=== PATIENT | female | born 1975 | race Caucasian/White ===

== ENCOUNTER → 2020-10-04 | Outpatient (CLI) | payer BC | LOC: MC.RAD 15:55 | DX: Z12.31 Encounter for screening mammogram for malignant neoplasm of breast (principal) ==

== ENCOUNTER 2022-03-23 01:08 | Observation (INO) | payer BC ==
[~2022-03-23] VITALS: Ht 165.1 cm; Wt 118.0 kg
[~2022-03-23 01:08] MED LIST: FLONASE NASAL S16 GM NAS; GLUCOPHAGE500 MG/TAB PO; NYAMYC100000 U/G TP; PROVENTIL0.09 MG/A1 IH
[2022-03-23 01:23] LABS: BASO # 0.1 K/mm3 (0.0-0.2); BASO % 0.6 % (0.0-2.0); EOS # 0.3 K/mm3 (0.0-0.7); EOS % 2.2 % (0.0-4.0); GRAN # 12.5 K/mm3 (1.4-6.5); GRAN % 81.1 % (42.2-75.2); HEMATOCRIT 41.6 % (37.0-47.0); HEMOGLOBIN 14.2 g/dl (12.5-16.0); LYMPH # 1.9 K/mm3 (1.2-3.4); LYMPH % 12.2 % (20.0-51.0); MEAN CELL VOLUME 83 fl (80.0-100.0); MEAN CORPUSCULAR HEMOGLOBIN 28 pg (27-31); MEAN CORPUSCULAR HGB CONC 34 g/dl (33.0-37.0); MONO # 0.6 K/mm3 (0.1-0.6); MONO % 3.6 % (1.7-9.3); PLATELET COUNT 265 K/mm3 (130-400); RED BLOOD COUNT 5.01 M/mm3 (4.10-5.30); REDCELL DISTRIBUTION WIDTH-CV 15.7 % (11.5-14.5)
[2022-03-23 01:42] LABS: C-REACTIVE PROTEIN 3.65 mg/dL (0.00-0.50)
[2022-03-23 01:46] LABS: BILIRUBIN,TOTAL 0.7 mg/dL (0.2-1.2); CALCIUM 9.9 mg/dL (8.4-10.2); CREATININE, serum 0.74 mg/dL (0.57-1.11); POTASSIUM 4.4 mmol/L (3.5-4.5); TOTAL PROTEIN 7.3 gm/dL (6.2-8.1)
[2022-03-23] MEDS ORDERED: ZYRTEC5 MG PO (03:00)
--- NOTE | 2022-03-23 03:45 | NUR ---
pt admitted to room 343 per wc from ED accompanied by RN and family member. pt able to ambulate to bed, ED RN reports that pt had to be put on 1L O2 per NC while asleep, NC and O2 provided for pt. IVF infusing per PIV in LAC. c/o mid upper abdominal pain, morphine ordered for pain, Dr Holcomb notified of pt arrival, SSI orders rec'd.
[2022-03-23 04:09] VITALS: BP 131/65; PULSE 56; TEMP 98.3
--- NOTE | 2022-03-23 07:16 | NUR ---
Received shift report from the operations supervisor 2nd shift nurse, RN
[2022-03-23 07:22] VITALS: BP 153/75; PULSE 55; TEMP 97.4
--- NOTE | 2022-03-23 08:51 | NUR ---
JUNE met with the patient to discuss discharge plan. The patient lives in [place] with her , Nagi (ph#[phone]). She states that her is a gas meter mechanic and is home only two weekends a month. She reports independence with ADLs and has canes available, if needed. The patient's PCP is Dr. Evelyn Dunbar and she receives her medications from [facility]. The patient does not have a DPOA-HC, but she was interested in obtaining a form. JUNE provided. The patient plans to return home upon discharge. No additional needs at this time. *Discharge plan: home*
--- NOTE | 2022-03-23 10:10 | NUR ---
Patient laying in bed alert and oriented. Patient reports of pain at epigastric region. Patient rated pain level 8/10. Morphine administered per orders.
--- NOTE | 2022-03-23 10:51 | NUR ---
Initial visit; Patient thanked Door Serviceman for looking in on her and keeping her in Door Serviceman's prayers
[2022-03-23 11:34] VITALS: BP 129/83; PULSE 55; TEMP 97.5
[2022-03-23 12:34] LABS: MEAN CELL VOLUME 85 fl (80.0-100.0); MEAN CORPUSCULAR HEMOGLOBIN 28 pg (27-31); MEAN CORPUSCULAR HGB CONC 33 g/dl (33.0-37.0); PLATELET COUNT 245 K/mm3 (130-400); RED BLOOD COUNT 4.58 M/mm3 (4.10-5.30); REDCELL DISTRIBUTION WIDTH-CV 15.8 % (11.5-14.5)
[2022-03-23 16:15] VITALS: BP 115/66; PULSE 59; TEMP 97.7
--- NOTE | 2022-03-23 18:57 | NUR ---
Patient awake watching tv. Patient denies of episode of n/v.
[2022-03-23 19:18] VITALS: BP 111/73; PULSE 62; TEMP 98.1
--- NOTE | 2022-03-23 21:00 | NUR ---
Patient A/O x4, VSS, denies pain on her abdomen, complained of headache but denies the need for medicine at this time, called Dr. Sanders and informed him that patient had a bowel movement ang I got an order to advance her diet to regular, sandwich given and tolerated it, will continue to monitor, call light and personal items within reach.
[2022-03-23 23:27] VITALS: BP 102/61; PULSE 81; TEMP 98.4
[2022-03-24 03:37] VITALS: BP 110/68; PULSE 74; TEMP 98.2
--- NOTE | 2022-03-24 07:08 | NUR ---
Received shift report from the hourly shift manager nurse, GRIS Li
[2022-03-24 07:47] VITALS: BP 160/77; PULSE 85; TEMP 98.7
--- NOTE | 2022-03-24 09:54 | NUR ---
Patient sitting up in bed. Patient states she had a bowel movement last night and passing out gas. Patient reports of mild discomfort the epigastric area. Patient has no order consent.
--- NOTE | 2022-03-24 10:38 | NUR ---
Discharge instruction given to patient. Patient has no other questions. INT discontinued. Patient escorted to the ER entrance. Family member escorted patient home.
--- NOTE | 2022-03-24 12:58 | NUR ---
Cap Sewer rounds: Patient was waiting for her daughter to arrive because she was going to be discharged today. Patient was looking forward to seeing her dogs. Cap Sewer prayed for Patient.
== END 2022-03-24 10:32 | disposition home or self-care (01) ==
LOC: COL.ER 01:08 → SURG 02:56
PROVIDERS: Emergency Medicine; ADMIT Surgery
DX: K56.609 Unspecified intestinal obstruction, unspecified as to partial versus complete obstruction (principal); K43.9 Ventral hernia without obstruction or gangrene; E66.01 Morbid (severe) obesity due to excess calories; Z68.41 Body mass index [BMI] 40.0-44.9, adult; E11.9 Type 2 diabetes mellitus without complications; Z79.84 Long term (current) use of oral hypoglycemic drugs; Z93.3 Colostomy status; Z90.49 Acquired absence of other specified parts of digestive tract
CPT/HCPCS: G0378; J1815; J2270; J2405; J2550; J7030; J7120; Q9967

== ENCOUNTER 2023-04-23 10:34 | Observation (INO) | payer SELFPAY ==
[~2023-04-23] VITALS: Ht 165.1 cm; Wt 118.0 kg
[~2023-04-23 10:34] MED LIST changes: +ALLEGRA 60MG TA60 MG PO; +BENADRYL25 M2 PO; +DOXYCYCLINE HY100 MG PO; +NYSTATIN100000 U/1 TOP; +OZEMPIC0.25 MG/0. SQ; +RIOMET500 MG/5 M PO; +VICTOZA6 MG/ML SQ; +ZYRTEC5 MG PO
[2023-04-23 12:39] LABS: ALBUMIN 3.8 gm/dL (3.5-5.0); BILIRUBIN,TOTAL 0.6 mg/dL (0.2-1.2); CALCIUM 9.7 mg/dL (8.4-10.2); CREATININE, serum 0.77 mg/dL (0.57-1.11); POTASSIUM 4.3 mmol/L (3.5-4.5)
[2023-04-23 12:42] LABS: BASO # 0.1 K/mm3 (0.0-0.2); BASO % 0.3 % (0.0-2.0); EOS % 0.3 % (0.0-4.0); GRAN # 13.1 K/mm3 (1.4-6.5); GRAN % 89.7 % (42.2-75.2); HEMATOCRIT 44.4 % (37.0-47.0); HEMOGLOBIN 14.9 g/dl (12.5-16.0); LYMPH # 1.1 K/mm3 (1.2-3.4); LYMPH % 7.3 % (20.0-51.0); MEAN CELL VOLUME 85 fl (80.0-100.0); MEAN CORPUSCULAR HEMOGLOBIN 28 pg (27-31); MEAN CORPUSCULAR HGB CONC 34 g/dl (33.0-37.0); MEAN PLATELET VOLUME 11.2 fl (7.4-10.4); MONO # 0.3 K/mm3 (0.1-0.6); PLATELET COUNT 274 K/mm3 (130-400); RED BLOOD COUNT 5.24 M/mm3 (4.10-5.30); REDCELL DISTRIBUTION WIDTH-CV 15.1 % (11.5-14.5)
[2023-04-23 15:26] LABS: COLLECTION METHOD CLEAN CATCH
[2023-04-23] MEDS ORDERED: OZEMPIC2 MG/0.75 SQ (15:37)
[2023-04-23] MEDS ORDERED: COLACE 100100 MG/CAP PO (15:39)
[2023-04-23] MEDS ORDERED: MICATIN2% TP (15:40)
[2023-04-23] MEDS ORDERED: ONE-A-DAY WOM200 MCG PO (15:42)
[2023-04-23 15:57] LABS: PH 5.5 (5.0-8.5); SQUAMOUS EPITHELIAL 0-2 /hpf (0-10); URINE APPEARANCE Clear (CLEAR/HAZY); URINE BLOOD Negative (NEGATIVE); URINE COLOR Yellow (YELLOW); URINE GLUCOSE Negative (NEGATIVE); URINE KETONE Negative (NEGATIVE); URINE NITRATE Negative (NEGATIVE); URINE PROTEIN(semi-quant) Negative (NEGATIVE); URINE RBC None Seen /hpf (0-2); URINE UROBILINOGEN 0.2 E.U/dL (0.2-1.0)
[2023-04-23 15:58] LABS: MUCOUS Present (NOT PRESENT); URINE BACTERIA Occasional /hpf (NONE SEEN)
[2023-04-23 17:00] VITALS: BP_SYST 151
[2023-04-23 17:11] VITALS: BP 151/69; PULSE 85; TEMP 99.5
--- NOTE | 2023-04-23 17:14 | NUR ---
PT REFUSED EKG. RN BEDSIDE. HALEIGH COLLIER NOTIFIED. IS FINE WITH PT DECISION.
--- NOTE | 2023-04-23 17:19 | NUR ---
PT REFUSED EKG AND TELEMETRY MONITORING.
--- NOTE | 2023-04-23 18:08 | NUR ---
PT ARRIVED TO FLOOR FROM ED AT 1645. PT IS HAVING 7/10 PAIN IN THE ABDOMEN . VITALS ARE STABLE. STARTED PT ON IV FLUIDS. NO NAUSEA AT THIS TIME. PT IS INDEPENDENT IN ROOM. SCDS ARE CALL LIGHT WITHIN REACH.
--- NOTE | 2023-04-23 18:40 | NUR ---
resting in bed, bedside shift report received from GRIS Jenkins, requestion pain meds and Alice will provide
--- NOTE | 2023-04-23 19:00 | NUR ---
c/o abdominal pain and requesting pain medication, medicated with morphine 2mg slow IV
[2023-04-23 20:00] VITALS: BP 106/60; PULSE 67; TEMP 98.6
--- NOTE | 2023-04-23 21:00 | NUR ---
was resting with eyes closed when entered room, then when awakened she began crying and moving about in bed c/o abdominal pain again, mnedicated with morphine 2mg slow IV, full assessment completed, see interventions for further info,
[2023-04-23 21:49] VITALS: BP_SYST 106
--- NOTE | 2023-04-23 22:29 | NUR ---
appears to be sleeping, in bed with eyes closed, resp quiet and easy
--- NOTE | 2023-04-23 23:28 | NUR ---
awake and requesting pain meds for pain 11/03, medicated with morphine 2mg slow IV
[2023-04-24] VITALS (8 sets, daily range): BP systolic 117–159; BP diastolic 60–98; PULSE 58–83; TEMP 97.7–98.2
--- NOTE | 2023-04-24 00:14 | NUR ---
awake and assisted up to bathroom, no moaning or crying in pain and appears to be comfortable
--- NOTE | 2023-04-24 01:46 | NUR ---
cardiopulmonary placed her on O2 at 2L/NC during rounds for an O2 sat of 84%
--- NOTE | 2023-04-24 02:02 | NUR ---
appears to be sleeping, in bed with lights off, eyes closed, resp quiet and easy
--- NOTE | 2023-04-24 05:29 | NUR ---
c/o pain and at first thought it was better and asked for MOtrin, MOtrin not ordered and then she called again and said pain was increaseing and requested morphine, morphine 2mg slow IV given
[2023-04-24 05:56] LABS: BASO # 0.1 K/mm3 (0.0-0.2); BASO % 0.5 % (0.0-2.0); EOS # 0.3 K/mm3 (0.0-0.7); EOS % 2.7 % (0.0-4.0); GRAN # 7.4 K/mm3 (1.4-6.5); GRAN % 76.4 % (42.2-75.2); HEMATOCRIT 38.5 % (37.0-47.0); LYMPH # 1.3 K/mm3 (1.2-3.4); LYMPH % 13.8 % (20.0-51.0); MEAN CELL VOLUME 85 fl (80.0-100.0); MEAN CORPUSCULAR HEMOGLOBIN 29 pg (27-31); MEAN CORPUSCULAR HGB CONC 34 g/dl (33.0-37.0); MEAN PLATELET VOLUME 10.9 fl (7.4-10.4); MONO # 0.6 K/mm3 (0.1-0.6); MONO % 6.1 % (1.7-9.3); PLATELET COUNT 224 K/mm3 (130-400); RED BLOOD COUNT 4.52 M/mm3 (4.10-5.30); REDCELL DISTRIBUTION WIDTH-CV 15.5 % (11.5-14.5)
[2023-04-24 06:18] LABS: CALCIUM 9.2 mg/dL (8.4-10.2); CREATININE, serum 0.69 mg/dL (0.57-1.11); POTASSIUM 4.3 mmol/L (3.5-4.5)
--- NOTE | 2023-04-24 06:50 | NUR ---
bedside shift report given to GRIS Tenorio
--- NOTE | 2023-04-24 07:55 | NUR ---
Pt. laying in bed. Pt. is A&OX3, assessment complete. IV to rt. ac patent, IV fluids infusing per orders. Pt. report pain to abd. at a 5 on pain scale, gave pain meds. Pt. also reports headache. NANDO Bustos notified, new order received. Pt. denies further needs, call light within reach.
--- NOTE | 2023-04-24 09:02 | NUR ---
gathering worker met with pt to discuss discharge planning. Pt lives in [facility] with her , Nagi [phone]. She sees Dr. Hernandez and obtains medications from [facility] with some difficulty. She was aware of [facility] and says her is working on getting lower cost prescriptions. JUNE advised to inquire about coupons and samples. Pt does not use any DME and is independent with ADLS. She did not have a DPOA-HC, but completed one with JUNE and GRIS Tenorio as witness. Pt was provided original and copies. Copy in chart. Pt wanted a "financial paper" in the event her insurance changeover did not take affect in time to cover this visit. JUNE left a voicemail with Cashier Greeter Hedy to see if she can assist. Discharge Plan: Home
--- NOTE | 2023-04-24 10:12 | NUR ---
Initial visit; Patient thanked Airplane Navigator for looking in on her and offering God's blessings. Patient in considerable pain requested prayer. Airplane Navigator prayed for healing and God's continual blessings. Airplane Navigator let Kim know a Airplane Navigator will see her tomorrow or sooner if she needs to visit and/or pray with someone.
--- NOTE | 2023-04-24 14:51 | NUR ---
Pt. ready for discharge. INT discontiued from rt. ac. Reviewed and gave discharge paperwork to the pt. Pt. voices understanding. Pt. escorted out.
== END 2023-04-24 14:52 | disposition home or self-care (01) ==
LOC: COL.ER 10:34 → SURG 15:29
PROVIDERS: Physician Assistant; ADMIT Internal Medicine
DX: K46.9 Unspecified abdominal hernia without obstruction or gangrene (principal); K76.0 Fatty (change of) liver, not elsewhere classified; D72.829 Elevated white blood cell count, unspecified; R07.9 Chest pain, unspecified; E11.9 Type 2 diabetes mellitus without complications; Z79.84 Long term (current) use of oral hypoglycemic drugs
CPT/HCPCS: G0378; J1815; J2270; J2405; J7030; J7120; Q9967

== ENCOUNTER 2023-05-06 21:07 | Inpatient (IN) | payer BC ==
[~2023-05-06] VITALS: Ht 165.1 cm; Wt 121.0 kg
[~2023-05-06 21:07] MED LIST changes: +COLACE 100100 MG/CAP PO; +MICATIN2% TP; +ONE-A-DAY WOM200 MCG PO; +OZEMPIC2 MG/0.75 SQ
[2023-05-06 22:20] LABS: BASO # 0.1 K/mm3 (0.0-0.2); BASO % 0.5 % (0.0-2.0); EOS # 0.3 K/mm3 (0.0-0.7); EOS % 2.1 % (0.0-4.0); GRAN # 10.5 K/mm3 (1.4-6.5); GRAN % 79.4 % (42.2-75.2); LYMPH # 1.8 K/mm3 (1.2-3.4); LYMPH % 13.8 % (20.0-51.0); MEAN CELL VOLUME 85 fl (80.0-100.0); MEAN CORPUSCULAR HEMOGLOBIN 28 pg (27-31); MEAN CORPUSCULAR HGB CONC 33 g/dl (33.0-37.0); MEAN PLATELET VOLUME 10.9 fl (7.4-10.4); MONO # 0.5 K/mm3 (0.1-0.6); MONO % 3.7 % (1.7-9.3); PLATELET COUNT 219 K/mm3 (130-400); RED BLOOD COUNT 4.95 M/mm3 (4.10-5.30); REDCELL DISTRIBUTION WIDTH-CV 15.2 % (11.5-14.5)
[2023-05-06 22:37] LABS: ALBUMIN 3.9 gm/dL (3.5-5.0); BILIRUBIN,TOTAL 0.6 mg/dL (0.2-1.2); C-REACTIVE PROTEIN 3.73 mg/dL (0.00-0.50); CREATININE, serum 0.79 mg/dL (0.57-1.11); TOTAL PROTEIN 7.9 gm/dL (6.2-8.1)
[2023-05-07] VITALS (10 sets, daily range): BP systolic 121–159; BP diastolic 77–97; PULSE 59–76; TEMP 97.4–98.5
[2023-05-07] MEDS ORDERED: ZYRTEC 10MG10 MG PO (00:11)
[2023-05-07 00:17] LABS: COLLECTION METHOD CLEAN CATCH
[2023-05-07] MEDS ORDERED: [UNRECOGNIZED DRUG - OTHER] PO (00:19)
[2023-05-07 00:36] LABS: PH 5.5 (5.0-8.5); URINE APPEARANCE Clear (CLEAR/HAZY); URINE BACTERIA Occasional /hpf (NONE SEEN); URINE BLOOD Negative (NEGATIVE); URINE COLOR Yellow (YELLOW); URINE GLUCOSE Negative (NEGATIVE); URINE KETONE Negative (NEGATIVE); URINE NITRATE Negative (NEGATIVE); URINE PROTEIN(semi-quant) Negative (NEGATIVE); URINE RBC 0-2 /hpf (0-2); URINE UROBILINOGEN 0.2 E.U/dL (0.2-1.0)
--- NOTE | 2023-05-07 02:45 | NUR ---
Report received from Sanam, RN-ED nurse.
--- NOTE | 2023-05-07 03:30 | NUR ---
Patient arrived to room 350 via wheelchair from ED. Oriented to room and policy. VS stable. Rating pain 4-6/10 on pain scale depending on activity. C/O nausea. Zofran given per dr order.
--- NOTE | 2023-05-07 06:18 | NUR ---
Patient called with c/o pain to abdomen-rating pain 6/10 on pain scale-described as intermittent stabbing. Morphine given per dr order.
--- NOTE | 2023-05-07 06:25 | NUR ---
Patient is refusing SCDs. States she has to be able to do "excercises with her feet to stretch her tendons back out."
[2023-05-07 07:56] LABS: BASO # 0.1 K/mm3 (0.0-0.2); BASO % 0.6 % (0.0-2.0); EOS # 0.2 K/mm3 (0.0-0.7); EOS % 2.5 % (0.0-4.0); HEMATOCRIT 38.1 % (37.0-47.0); HEMOGLOBIN 12.7 g/dl (12.5-16.0); LYMPH # 1.5 K/mm3 (1.2-3.4); LYMPH % 17.7 % (20.0-51.0); MEAN CELL VOLUME 84 fl (80.0-100.0); MEAN CORPUSCULAR HEMOGLOBIN 28 pg (27-31); MEAN CORPUSCULAR HGB CONC 33 g/dl (33.0-37.0); MEAN PLATELET VOLUME 10.8 fl (7.4-10.4); MONO # 0.5 K/mm3 (0.1-0.6); MONO % 5.7 % (1.7-9.3); PLATELET COUNT 189 K/mm3 (130-400); RED BLOOD COUNT 4.52 M/mm3 (4.10-5.30); REDCELL DISTRIBUTION WIDTH-CV 15.3 % (11.5-14.5)
--- NOTE | 2023-05-07 08:00 | NUR ---
PATIENT IS ORIENTED BUT DROWSY THIS AM. VSS. 02 @ 2L PER NC WITH SATS IN LOW 90'S. PATIENT FREQUENTLY REQUESTING NARCOTICS. C/O ABD PAIN AND REQUESTING PRN ZOFRAN AND IV MORPHINE, GIVEN, SEE JUL. NPO, BOWL REST. PATIENT REPORTS SHE IS NOT PASSING FLATUS AND LAST HAD A "TOOTHPASTE" STOOL YESTERDAY EVENING. PATIENT HAS HX OF MULTIPLE ABX SURGERIES AND SBO. IV FLUIDS INFUSING VIA PUMP INTO LEFT AC IV. AM BS WAS 166. HEAD TO TOE ASSESSMENT COMPLETE. NO OTHER NEEDS AT THIS TIME. CALL LIGHT IN REACH.
[2023-05-07 08:18] LABS: CALCIUM 9.3 mg/dL (8.4-10.2); CREATININE, serum 0.67 mg/dL (0.57-1.11); POTASSIUM 4.4 mmol/L (3.5-4.5)
--- NOTE | 2023-05-07 09:26 | NUR ---
Initial visit; Patient states she is glad to see Shoe Cutter and mentioned that the pain she is experiencing ebbs and flows. Kim thanked Shoe Cutter for looking in on her and really only needs to rest and have Shoe Cutter keep her in her prayers.
--- NOTE | 2023-05-07 10:07 | NUR ---
Day Care Attendant met with patient to discuss discharge planning. Patient advised she was just here a couple weeks ago (04/23/23-04/24/23) for similar reasons. Patient lives in [facility] with her , Nagi (ph#[phone]) and sees Dr. Hernandez for primary care. Patient obtains medications from [facility] and did report some difficulty affording medications. Patient advised she is insured through her 's employer and it does not include prescription coverage. Per SW notes from last stay, SW discussed options for prescription assistance. Patient advised she did stop taking one of her meds due to cost. Patient does not use any DME and is independent with ADLS. Patient completed DPOA-HC during her last stay and a copy is located in EMR. Patient designated her , Nagi and daughter, Marie (ph#[phone]). Patient plans to return home at time of discharge. Discharge Plan: Home
--- NOTE | 2023-05-07 12:25 | NUR ---
PATIENT CALLED OUT ASKING IF IT WAS TIME FOR PAIN MEDS AGAIN, PRN IV MORPHINE GIVEN PER ORDERS. PATIENT IS CRYING AND CURSING AT STAFF STATING SHE WAS FINE WHEN THE DOCTOR ROUNDED BUT THEN THE PAIN STARTED AGAIN SHORTLY AFTER SHE LEFT. PATIENT IS VERY UPSET STATING IV PAIN MEDS Q4H IS TO LONG AND PATIENT WANTS THE NARCOTICS MORE FREQUENTLY. PATIENT IS ON THE PHONE WITH SOMEONE ASKING THEM TO COME BE HER ADVOCATE. NOTIFIED THAT PATIENT WOULD LIKE TO TALK TO HER AGAIN.
--- NOTE | 2023-05-07 18:45 | NUR ---
appears to be dozing, bedside shift report received from GRIS Loya, then awakened and assisted up to bathroom,
--- NOTE | 2023-05-07 19:20 | NUR ---
appears to be sleeping, resp quiet and easy
--- NOTE | 2023-05-07 20:49 | NUR ---
up to bathroom and had very small semi formed bowel movement and what appeared to be suppository, full assessment completed, see interventions for further info, denies needs at this time,
--- NOTE | 2023-05-07 21:28 | NUR ---
awake resting in bed with lights off, denies needs
--- NOTE | 2023-05-07 23:07 | NUR ---
called and had another very small semi formed bowel movement
[2023-05-08] VITALS (12 sets, daily range): BP systolic 111–128; BP diastolic 70–77; PULSE 56–77; TEMP 97.4–98.6
--- NOTE | 2023-05-08 02:02 | NUR ---
appears to be sleeping,lights off, eyes closed, resp quiet and easy
--- NOTE | 2023-05-08 03:50 | NUR ---
appears to be sleeping, resp quiet and easy
--- NOTE | 2023-05-08 07:03 | NUR ---
bedside shift report given to RGIS Loya
--- NOTE | 2023-05-08 08:00 | NUR ---
PATIENT IS ORIENTED BUT DROWSY THIS AM. C/O HEADACHE AND REQUESTING SOMETHING. CALLED , SEE ORDERS FOR PRN TYLENOL, GIVEN WITH A FEW SIPS. NPO. PATIENT WAS ABLE TO HAVE TWO SMALL BM'S LAST NIGHT AFTER GETTING A SUPPOSITORY YESTERDAY. PATIENT REPORTS ABD PAIN IS MUCH BETTER AND PREFERS TO START TAKING THINGS ORALLY TODAY, AWAITING TO ROUND. NO C/O N/V. IV FLUIDS INFUSING VIA PUMP INTO LEFT AC IV. AM BS WAS 172. VSS ON TELE. HEAD TO TOE ASSESSMENT COMPLETE. INDEPENDENT IN ROOM. NO OTHER NEEDS AT THIS TIME, PATIENT WANTING TO SLEEP A LITTLE LONGER WITH LIGHTS TURNED DOWN DUE TO HEADACHE. CALL LIGHT IN REACH.
[2023-05-08 09:07] LABS: BASO # 0.1 K/mm3 (0.0-0.2); BASO % 0.5 % (0.0-2.0); EOS # 0.4 K/mm3 (0.0-0.7); EOS % 3.4 % (0.0-4.0); GRAN # 7.8 K/mm3 (1.4-6.5); GRAN % 75.1 % (42.2-75.2); HEMOGLOBIN 12.2 g/dl (12.5-16.0); LYMPH # 1.6 K/mm3 (1.2-3.4); LYMPH % 15.8 % (20.0-51.0); MEAN CELL VOLUME 85 fl (80.0-100.0); MEAN CORPUSCULAR HEMOGLOBIN 28 pg (27-31); MEAN CORPUSCULAR HGB CONC 33 g/dl (33.0-37.0); MEAN PLATELET VOLUME 10.9 fl (7.4-10.4); MONO # 0.5 K/mm3 (0.1-0.6); MONO % 4.8 % (1.7-9.3); PLATELET COUNT 198 K/mm3 (130-400); RED BLOOD COUNT 4.32 M/mm3 (4.10-5.30); REDCELL DISTRIBUTION WIDTH-CV 15.3 % (11.5-14.5)
[2023-05-08 09:12] LABS: HEMATOCRIT 36.5 % (37.0-47.0)
[2023-05-08 09:20] LABS: CALCIUM 9.1 mg/dL (8.4-10.2); CREATININE, serum 0.69 mg/dL (0.57-1.11); POTASSIUM 4.1 mmol/L (3.5-4.5)
--- NOTE | 2023-05-08 13:50 | NUR ---
PATIENT TOLERATING JUICE, DIET ADVANCED TO FULL LIQUIDS. PATIENT SHOWN HOW TO ORDER
--- NOTE | 2023-05-08 21:00 | NUR ---
PT A&O X4 LAYING IN BED. VSS. DENYING N/V & TOLERATING FULL LIQUIDS. DENYING PAIN, STATES SHE HAS HAD A MILD HEADACHE ALL DAY BUT DENYING THE NEED FOR MEDS CURRENTLY. INT TO LEFT AC PATENT. CALL LIGHT IN REACH & DENYING FURTHER NEEDS.
[2023-05-09 00:12] VITALS: BP 104/73; PULSE 66; TEMP 98.3
[2023-05-09 00:34] VITALS: BP_SYST 104
[2023-05-09 04:15] VITALS: BP 122/78; PULSE 56; TEMP 98.3
[2023-05-09 04:21] VITALS: BP_SYST 122
[2023-05-09 07:58] VITALS: BP 115/72; PULSE 67; TEMP 98.2
[2023-05-09 08:34] VITALS: BP_SYST 115
--- NOTE | 2023-05-09 08:37 | NUR ---
PT WALKING AROUND ROOM, ALERT AND ORIENTEDX4. PT HAS NO COMPLAINTS OF PAIN AT THIS TIME. ATEMPTED TO FLUSH IV AND IV WAS INFILTRATED IN THE LEFT AC. DR HANNON GAVE ORDERS TO ADVANCE DIET TO SOFT AND BITE SIZED. PT WILL BE TRYING NEW DIET FOR BREAKFAST. PT TOLERATED FULL LIQUIDS AND IS HAVING BOWEL MOVEMENTS. ASSESSED. CALL LIGHT WITHIN REACH.
--- NOTE | 2023-05-09 11:13 | NUR ---
PT HAS DISCHARGE ORDERS. TOOK OUT IV. WENT OVER DISCHARGE PAPERWORK WITH PT. THIS NURSE ESCORTED PT OUT. PT DROVE HERSELF HERE.
--- NOTE | 2023-05-09 13:03 | NUR ---
Follow-up visit; Patient doing well today. Kim seemed pleased when stated she was just checking to see if she was doing better and wanted to wish her a Linda Harp. Kim thanked for coming by and wished her the same.
== END 2023-05-09 11:15 | disposition home or self-care (01) | DRG 394 ==
LOC: COL.ER 21:07 → SURG 05-07 01:51
PROVIDERS: Emergency Medicine; Nurse Practitioner Family; Physician Assistant; ADMIT Internal Medicine
DX: K43.6 Other and unspecified ventral hernia with obstruction, without gangrene (principal); Z68.41 Body mass index [BMI] 40.0-44.9, adult; K75.81 Nonalcoholic steatohepatitis (NASH); E11.65 Type 2 diabetes mellitus with hyperglycemia; E66.01 Morbid (severe) obesity due to excess calories; D72.829 Elevated white blood cell count, unspecified; D25.9 Leiomyoma of uterus, unspecified; R91.8 Other nonspecific abnormal finding of lung field; J98.4 Other disorders of lung; Z88.8 Allergy status to other drugs, medicaments and biological substances; Z91.040 Latex allergy status; Z90.49 Acquired absence of other specified parts of digestive tract; Z79.899 Other long term (current) drug therapy; Z87.891 Personal history of nicotine dependence; Z23 Encounter for immunization
CPT/HCPCS: C9113; J2270; J2405; J7030; J7120; Q9967

== ENCOUNTER 2023-06-08 05:45 | Inpatient (IN) | payer BC ==
[2023-06-08] VITALS (8 sets, daily range): BP systolic 124–144; BP diastolic 80–87; PULSE 65–80; TEMP 97.4–97.8
[~2023-06-08] VITALS: Ht 165.1 cm; Wt 120.1 kg
[~2023-06-08 05:45] MED LIST changes: +ZYRTEC 10MG10 MG PO; +[UNRECOGNIZED DRUG - OTHER] PO
[2023-06-08] MEDS ORDERED: Morphine 4 MG/ML VIAL IV ONE ×2 (06:00→08:45)
[2023-06-08] MEDS ORDERED: Ondansetron 4 MG/2 ML VIAL IV ONE (06:00)
[2023-06-08 06:05] LABS: BASO # 0.1 K/mm3 (0.0-0.2); BASO % 0.5 % (0.0-2.0); EOS # 0.2 K/mm3 (0.0-0.7); EOS % 1.2 % (0.0-4.0); GRAN # 10.1 K/mm3 (1.4-6.5); GRAN % 83.6 % (42.2-75.2); HEMATOCRIT 44.4 % (37.0-47.0); HEMOGLOBIN 14.9 g/dl (12.5-16.0); LYMPH # 1.3 K/mm3 (1.2-3.4); LYMPH % 11.1 % (20.0-51.0); MEAN CELL VOLUME 84 fl (80.0-100.0); MEAN CORPUSCULAR HEMOGLOBIN 28 pg (27-31); MEAN CORPUSCULAR HGB CONC 34 g/dl (33.0-37.0); MEAN PLATELET VOLUME 10.9 fl (7.4-10.4); MONO # 0.4 K/mm3 (0.1-0.6); PLATELET COUNT 232 K/mm3 (130-400); RED BLOOD COUNT 5.29 M/mm3 (4.10-5.30); REDCELL DISTRIBUTION WIDTH-CV 14.9 % (11.5-14.5)
[2023-06-08 06:13] LABS: INR 1.1 (0.8-3.0); PROTHROMBIN TIME 11.7 SECONDS (9.7-12.8)
[2023-06-08 06:15] LABS: PARTIAL THROMBOPLASTIN TIME 36.9 SECONDS (26.0-37.0)
[2023-06-08 06:23] LABS: ALANINE AMINOTRANSFERASE 42 U/L (0-55); ALBUMIN 3.8 gm/dL (3.5-5.0); ALKALINE PHOSPHATASE 127 U/L (40-150); ANION GAP 11 mmol/L (7-16); AST,SGOT 26 U/L (5-34); BILIRUBIN,TOTAL 0.6 mg/dL (0.2-1.2); BLOOD UREA NITROGEN 16 mg/dL (7-19); CALCIUM 10.1 mg/dL (8.4-10.2); CARBON DIOXIDE 23 mmol/L (22-29); CHLORIDE 102 mmol/L (98-107); CREATININE, serum 1.03 mg/dL (0.57-1.11); LIPASE 24 U/L (8-78); POTASSIUM 4.4 mmol/L (3.5-4.5); SODIUM 136 mmol/L (136-145); TOTAL PROTEIN 7.9 gm/dL (6.2-8.1)
[2023-06-08 06:26] LABS: GLUCOSE 474 mg/dL (70-99)
[2023-06-08 06:29] LABS: TROPONIN-I < 0.010 ng/mL (0.00-0.033)
[2023-06-08] MEDS ORDERED: Insulin Regular Human (NovoLIN R/HumuLIN R) IV ONE (07:00)
[2023-06-08] MEDS ORDERED: NS 1,000 ML IV ONE (07:00)
[2023-06-08] MEDS ORDERED: Iohexol 300 - 100 ML VIAL IV ONE (07:26)
[2023-06-08] MEDS ORDERED: NS 100 ML IV SCH (07:27)
[2023-06-08 07:34] LABS: COLLECTION METHOD CLEAN CATCH
[2023-06-08 07:39] LABS: URINE APPEARANCE Clear (CLEAR/HAZY); URINE BLOOD Negative (NEGATIVE); URINE COLOR Yellow (YELLOW); URINE GLUCOSE 2+ (NEGATIVE); URINE KETONE 1+ (NEGATIVE); URINE NITRATE Negative (NEGATIVE); URINE PROTEIN(semi-quant) Negative (NEGATIVE); URINE UROBILINOGEN 0.2 E.U/dL (0.2-1.0)
[2023-06-08 07:43] LABS: URINE RBC None Seen /hpf (0-2)
[2023-06-08 07:44] LABS: SQUAMOUS EPITHELIAL 0-2 /hpf (0-10); URINE BACTERIA Rare /hpf (NONE SEEN)
[2023-06-08] MEDS ORDERED: FLONASEALLERGY NS (08:55)
[2023-06-08] MEDS ORDERED: ALLEGRA-D 24HR1 T24 PO (08:55)
[2023-06-08] MEDS ORDERED: VITAMIN D31000 I1 PO (08:55)
[2023-06-08] MEDS ORDERED: PROBIOTIC 2 BI1 EACH PO (08:56)
[2023-06-08] MEDS ORDERED: BACTRIM DS 8001 TAB PO (08:57)
[2023-06-08] MEDS ORDERED: *Potassium Replacement Protocol MC SCH (10:30)
[2023-06-08] MEDS ORDERED: COMPLETE MULTI1 TAB PO (10:33)
[2023-06-08] MEDS ORDERED: COLACE 100100 MG/CAP PO (10:34)
--- NOTE | 2023-06-08 11:00 | NUR ---
Patient admitted to room 322. Awake and alert. Patient has been through SBO before. Vss on room air. Admission completed, tele on. made aware patient admitted to floor and needing medication orders. Will monitor
[2023-06-08] MEDS ORDERED: NS 1,000 ML IV SCH ×2 (11:45)
[2023-06-08] MEDS ORDERED: Morphine 4 MG/ML VIAL IV PRN (11:45)
[2023-06-08] MEDS ORDERED: Ondansetron 4 MG/2 ML VIAL IV PRN (11:45)
--- NOTE | 2023-06-08 11:55 | NUR ---
Patient called out, reports increased abdominal pain. Again spoke with about needing medication orders. Orders obtained, but patient not wanting to take [place], so spoke again to about getting Morphine ordered. Orders again obtained. Patient to remain NPO. Will monitor
[2023-06-08] MEDS ORDERED: Dextrose (Glucose) 15 GM (4 x 3.75 GM) Chewable TABLET PACK PO PRN (13:00)
[2023-06-08] MEDS ORDERED: Glucagon 1 MG VIAL IM PRN (13:00)
[2023-06-08] MEDS ORDERED: Dextrose 50% Water 25 GM/50 ML SYRINGE IV PRN (13:00)
--- NOTE | 2023-06-08 13:45 | NUR ---
AFTER CALLING CLARIFYING ORDER DOSE WITH , LEVIMIR GIVEN AT LOWER DOSE DUE TO PATIENT BEING NPO/NOT ON INSULIN AT HOME. PATIENT PAIN BETTER MANAGED AT THIS TIME, ABLE TO REST
[2023-06-08] MEDS ORDERED: Insulin Aspart (NovoLOG) SQ SCH ×2 (16:00)
--- NOTE | 2023-06-08 18:07 | NUR ---
Patient resting in bed. Crying out in pain after getting up to the bathoom. Pain elevated. Morphine for abdominal pain and norco for headache. Zofran for nausea prevention and insulin per orderd. Patient doing better after medications. Will report off to nightnurse
--- NOTE | 2023-06-08 21:26 | NUR ---
Patient assessed at this time, see shift assessment, reports pain to abdomen, IV morphine given, PS of 5/10, she states that she wanted to stay on top of her pain, IV infusing well on right AC, NS at 75cc/hr, plan of care discussed for this shift, denies further needs, call light and personal items within reach, will continue to monitor.
[2023-06-09] VITALS (7 sets, daily range): BP systolic 106–144; BP diastolic 72–77; PULSE 63–70; TEMP 97.4–98.6
--- NOTE | 2023-06-09 06:25 | NUR ---
Patient reports her pain starting to increase and complained of nausea, medicated with morphine and zofran.
--- NOTE | 2023-06-09 09:20 | NUR ---
pt a&ox3 resting in bed. vss and tele in place. pt denies pain at this time. BGL 272, 8 units given per SS. bowel sounds are hypoactive. fluids infusing into right ac at 75ml/hr. pt denies needs at this time. call light in reach.
--- NOTE | 2023-06-09 09:35 | NUR ---
pt reports passing gas, ambulating in the hallway without difficulty. pain still minimal.
--- NOTE | 2023-06-09 09:53 | NUR ---
SW met with patient to complete intake. Patient confirmed that she lives in [place] w/spouse Nagi Yung ( [phone]) she also indentified him as NOK to include her daughter Marie Morel ([phone]) she also noted they both on agents on her DPOA which is on file with hospital. Patient confirmed that her PCP is Dr. Hernandez and pharmacy of choice is [facility]. Patient reports that she is independent with ADLs and currently does not use any DMEs. D/C plan: patient is anticipating to d/c back her residence pending further medical recommendations at this time.
[2023-06-09] MEDS ORDERED: Acetaminophen 500 MG TAB PO PRN (10:00)
[2023-06-09 10:06] LABS: BASO % 0.3 % (0.0-2.0); EOS # 0.2 K/mm3 (0.0-0.7); EOS % 1.3 % (0.0-4.0); GRAN # 9.7 K/mm3 (1.4-6.5); HEMATOCRIT 40.2 % (37.0-47.0); HEMOGLOBIN 13.2 g/dl (12.5-16.0); LYMPH # 1.3 K/mm3 (1.2-3.4); LYMPH % 11.2 % (20.0-51.0); MEAN CELL VOLUME 85 fl (80.0-100.0); MEAN CORPUSCULAR HEMOGLOBIN 28 pg (27-31); MEAN CORPUSCULAR HGB CONC 33 g/dl (33.0-37.0); MEAN PLATELET VOLUME 10.8 fl (7.4-10.4); MONO # 0.4 K/mm3 (0.1-0.6); MONO % 3.8 % (1.7-9.3); PLATELET COUNT 205 K/mm3 (130-400); RED BLOOD COUNT 4.75 M/mm3 (4.10-5.30); REDCELL DISTRIBUTION WIDTH-CV 15.3 % (11.5-14.5)
[2023-06-09 10:22] LABS: ALBUMIN 3.1 gm/dL (3.5-5.0); CALCIUM 8.9 mg/dL (8.4-10.2); CREATININE, serum 0.72 mg/dL (0.57-1.11); MAGNESIUM 1.9 mg/dL (1.6-2.6); PHOSPHOROUS 3.4 mg/dL (2.3-4.7); POTASSIUM 4.3 mmol/L (3.5-4.5)
--- NOTE | 2023-06-09 15:44 | NUR ---
INT discontinued. discharge instructions given to pt, all questions answered. escorted pt to personal vehicle by wheelchair.
[2023-06-09] MEDS ORDERED: Sulfamethoxazole/Trimethoprim 800-160 MG TAB PO SCH (21:00)
== END 2023-06-09 15:45 | disposition home or self-care (01) | DRG 394 ==
LOC: COL.ER 05:45 → SURG 09:45
PROVIDERS: Emergency Medicine; ADMIT Internal Medicine
DX: K43.6 Other and unspecified ventral hernia with obstruction, without gangrene (principal); Z68.41 Body mass index [BMI] 40.0-44.9, adult; E66.01 Morbid (severe) obesity due to excess calories; E11.65 Type 2 diabetes mellitus with hyperglycemia; R91.8 Other nonspecific abnormal finding of lung field; K76.0 Fatty (change of) liver, not elsewhere classified; Z90.49 Acquired absence of other specified parts of digestive tract; Z98.51 Tubal ligation status; Z79.899 Other long term (current) drug therapy; Z88.8 Allergy status to other drugs, medicaments and biological substances; Z91.040 Latex allergy status; Z23 Encounter for immunization
CPT/HCPCS: J1815; J2270; J2405; J7030; Q9967